=== PATIENT | male | born 1975 | race Two or more races ===

== ENCOUNTER 2019-03-30 11:44 | Emergency (ER) | payer OTHER ==
[~2019-03-30] VITALS: Ht 170.2 cm; Wt 65.8 kg
== END 2019-03-30 17:41 | disposition home or self-care (01) ==
LOC: ER 11:44
DX: S20.211A Contusion of right front wall of thorax, initial encounter (principal); S80.11XA Contusion of right lower leg, initial encounter; S70.01XA Contusion of right hip, initial encounter; V19.9XXA Pedal cyclist (driver) (passenger) injured in unspecified traffic accident, initial encounter; Y93.89 Activity, other specified; Y92.89 Other specified places as the place of occurrence of the external cause; Y99.8 Other external cause status

== ENCOUNTER 2020-03-14 08:41 | Outpatient (CLI) | payer OTHER | END 2020-03-14 14:12 | disposition home or self-care (01) | LOC: TOM 08:41 | DX: R31.0 Gross hematuria (principal) ==

== ENCOUNTER 2020-03-21 07:00 | Outpatient (CLI) | payer OTHER | END 2020-03-21 10:00 | disposition home or self-care (01) | LOC: EKG 07:00 → ADM 11:30 → EDSTATUS 03-23 11:30 → CIR.AMB 03-23 11:30 → AMB-ENDOS 03-23 11:30 → EKG 04-22 16:19 | PROVIDERS: ATTEND Urology | DX: C67.8 Malignant neoplasm of overlapping sites of bladder (principal); E11.59 Type 2 diabetes mellitus with other circulatory complications; Z01.810 Encounter for preprocedural cardiovascular examination; Z01.812 Encounter for preprocedural laboratory examination ==